=== PATIENT | female | born 1935 | race Caucasian/White ===

== ENCOUNTER → 2016-08-03 | Outpatient (CLI) | payer OTHER | LOC: FIMAGING 09:57 | PROVIDERS: ATTEND Internal Medicine | DX: Z13.820 Encounter for screening for osteoporosis (principal); M81.0 Age-related osteoporosis without current pathological fracture; Z82.62 Family history of osteoporosis; Z78.0 Asymptomatic menopausal state ==

== ENCOUNTER 2017-05-17 11:57 | Emergency (ER) | payer OTHER ==
[2017-05-17 12:05] VITALS: TEMP 97.2
--- NOTE | 2017-05-17 13:30 | EDPHY ---
H & P Stated Complaint: R neck swelling Time Seen by Provider: 05/17/17 13:17 HPI/ROS: CHIEF COMPLAINT: Neck swelling HISTORY OF PRESENT ILLNESS: The patient is an 81-year-old healthy female who comes to the emergency department with her daughter complaining that she noticed a swollen nodule at the angle of her right mandible. She 1st noticed it last night. She put ice on it this morning and is now gone. She denies recent viral symptoms. No sore throat. She did have her teeth cleaned 2 weeks ago but states that it has done well and she has not had any pain or swelling. She has not had a fever. She thought that the lump seemed similar to when she was a child and had the mumps. No erythema. No headache. No difficulty breathing REVIEW OF SYSTEMS: Constitutional: denies: chills, fever, recent illness, recent injury EENTM: See HPI denies: blurred vision, double vision, nose congestion Respiratory: denies: cough, shortness of breath Cardiac: denies: chest pain, irregular heart rate, lightheadedness, palpitations Gastrointestinal/Abdominal: denies: abdominal pain, diarrhea, nausea, vomiting, blood streaked stools Genitourinary: denies: dysuria, frequency, hematuria, pain Musculoskeletal: denies: joint pain, muscle pain Skin: denies: lesions, rash, jaundice, bruising Neurological: denies: headache, numbness, paresthesia, tingling, dizziness, weakness Hematologic/Lymphatic: denies: blood clots, easy bleeding, easy bruising Immunologic/allergic: denies: HIV/AIDS, transplant EXAM: GENERAL: Well-appearing, well-nourished and in no acute distress. HEAD: Atraumatic, normocephalic. EYES: Pupils equal round and reactive to light, extraocular movements intact, sclera anicteric, conjunctiva are normal. ENT: No palpable lump or mass, parotid gland normal and nontender. No significant lymphadenopathy, submandibular glands normal. No tenderness, no erythema. TMs normal, nares patent, oropharynx clear without exudates. No obvious cavity or leatha Dental infection. Moist mucous membranes. NECK: Normal range of motion, supple without lymphadenopathy or JVD. LUNGS: Breath sounds clear to auscultation bilaterally and equal. No wheezes rales or rhonchi. HEART: Regular rate and rhythm without murmurs, rubs or gallops. ABDOMEN: Soft, nontender, normoactive bowel sounds. No guarding, no rebound. No masses appreciated. BACK: No CVA tenderness, no spinal tenderness, step-offs or deformities EXTREMITIES: Normal range of motion, no pitting or edema. No clubbing or cyanosis. NEUROLOGICAL: Cranial nerves II through XII grossly intact. Normal speech, normal gait. 5/5 strength, normal movement in all extremities, normal sensation PSYCH: Normal mood, normal affect. SKIN: Warm, dry, normal turgor, no visible rashes or lesions. Source: Patient, Family - Personal History Current Tetanus/Diphtheria Vaccine: Yes Current Tetanus Diphtheria and Acellular Pertussis (TDAP): Yes Tetanus Vaccine Date: < 10 years - Medical/Surgical History Hx Asthma: No Hx Chronic Respiratory Disease: No Hx Diabetes: No Hx Cardiac Disease: No Hx Renal Disease: No Hx Cirrhosis: No Hx Alcoholism: No Hx HIV/AIDS: No Hx Splenectomy or Spleen Trauma: No Other PMH: SEIZURE DISORDER/HYSTERECTOMY - Family History Significant Family History: No pertinent family hx - Social History Smoking Status: Current every day smoker Alcohol Use: Sober Constitutional: Initial Vital Signs Temperature (C) 36.2 C 05/17/17 12:03 Heart Rate 102 H 05/17/17 12:03 Respiratory Rate 18 05/17/17 12:03 Blood Pressure 145/92 H 05/17/17 12:03 O2 Sat (%) 91 L 05/17/17 12:03 O2 Delivery Mode Room Air Allergies/Adverse Reactions: carbamazepine [From Carbatrol] Allergy (Verified 05/17/17 12:02) divalproex sodium [From Depakote] Allergy (Verified 05/17/17 12:03) gabapentin [From Neurontin] Allergy (Verified 05/17/17 12:03) phenytoin [From Dilantin] Allergy (Verified 05/17/17 12:02) Home Medications: Medication Instructions Recorded Crestor 11/03/15 PHENOBARBITAL 11/03/15 Medical Decision Making ED Course/Re-evaluation: We discussed the possible differential diagnosis included parotid duct stone, infection, lymphadenopathy, tumor, abscess, dental infection and cetera. I recommended a CT scan to evaluate further. The patient does have a history of smoking. At this point her symptoms are resolved and I do not palpate or seeing any abnormalities on exam. She refused CT scanning and states that she will follow up with her doctor lip jacqueline tomorrow for re-evaluation. I gave her strict precautions to return if her symptoms worsen or return. Differential Diagnosis: Partial list of the Differential diagnosis considered include but were not limited to; lymphadenopathy, parotid duct stone, mom's, abscess, dental infection, tumor and although unlikely based on the history and physical exam, I also considered meningitis, sepsis, airway obstruction, vascular disease, aneurysm. I discussed these differential diagnoses and the plan with the patient as well as the usual and expected course. The patient understands that the diagnosis is provisional and that in medicine we are not always correct and that further workup is often warranted. Usual and customary warnings were given. All of the patient's questions were answered. The patient was instructed to return to the emergency department should the symptoms at all worsen or return, otherwise to followup with the physician as we discussed. Departure - Departure Disposition: Home, Routine, Self-Care Clinical Impression: Localized swelling, mass and lump, neck Condition: Fair Instructions: Parotid Duct Obstruction (ED) Referrals: Cynthia Burton MD [Primary Care Provider] - As per Instructions
[2017-05-17 13:46] VITALS: BP 135/83; PULSE 75; RESP 16; O2SAT 92
== END 2017-05-17 13:49 | disposition home or self-care (01) ==
DX: R22.1 Localized swelling, mass and lump, neck (principal); F17.200 Nicotine dependence, unspecified, uncomplicated